=== PATIENT | female | born 1945 | race Caucasian/White ===

== ENCOUNTER 2017-09-30 14:29 | Inpatient (IN) | payer MEDICARE ==
[2017-09-30 14:58] LABS: #Basophils 0.1 thou/uL (0.0-0.2); #Monocytes 0.5 thou/uL (0.11-0.59); #Neutrophils 5.7 thou/uL (1.40-6.50); %Basophils 1.4 % (0.0-1.0); %Eosinophils 0.6 % (0.0-10.0); %Monocytes 6.9 % (0.0-10.0); Hemoglobin 13.6 g/dL (12.0-16.0); Mean Corpuscular HGB CONC 34.3 g/dL (32.0-36.0); Mean Corpuscular Hemoglobin 31.4 pg (27.0-31.0); Mean Corpuscular Volume 91.7 fl (81.0-99.0); Platelet Count 181 thou/uL (130-400); RBC Distribution Width 13.4 % (11.5-14.5); Red Blood Cell (RBC) Count 4.34 mill/uL (4.20-5.40); White Blood Cell (WBC) Count 7.3 thou/uL (4.8-10.8)
[2017-09-30] MEDS ORDERED: Acetaminophen 500 MG TAB ONE (14:58)
[2017-09-30 15:13] LABS: ALT (SGPT) 17 U/L (8-55); AST (SGOT) 17 U/L (5-34); Alkaline Phosphatase 68 U/L (40-150); Anion Gap 17 mmol/L (10-20); BUN (Urea Nitrogen) 13 mg/dL (9.8-20.1); Bilirubin, Total 0.8 mg/dL (0.2-1.2); Calc. Creatinine Clearance 0 mL/min (70-130); Calcium 9.5 mg/dL (7.8-10.44); Carbon Dioxide 25 mmol/L (23-31); Chloride 95 mmol/L (98-107); Estimated GFR-MDRD 47; Globulin 2.3 g/dL (2.4-3.5); Glucose 109 mg/dL (80-115); Potassium 3.7 mmol/L (3.5-5.1); Protein, Total 6.3 g/dL (6.0-8.3); Sodium 133 mmol/L (136-145)
--- NOTE | 2017-09-30 15:34 | RAD ---
PORTABLE CHEST ONE VIEW: Date: 09-30-17 Time: 2:22 p.m. History: Fever, cough. FINDINGS: Comparison made with exam of 09-08-16. The heart size is borderline. The lungs are well expanded without confluent areas of consolidation or pneumothorax, michelle edema or pleural effusions. Continued mild elevation of the right hemidiaphragm. IMPRESSION: No acute process. POS: [facility]
[2017-09-30] MEDS ORDERED: Piperacillin/Tazobactam 3.375 GM VIAL ONE (15:35)
[2017-09-30] MEDS ORDERED: Sodium Chloride 0.9% 100 ML ONE ×2 (15:36)
[2017-09-30 18:55] LABS: Lactic Acid 1.5 mmol/L (0.5-2.2)
[2017-09-30] MEDS ORDERED: Bisacodyl 5 MG TAB PO PRN (19:03)
[2017-09-30] MEDS ORDERED: Ondansetron ODT 4 MG TAB PO PRN (19:03)
[2017-09-30] MEDS ORDERED: Ondansetron HCl/PF 4 MG/2 ML Vial IVP PRN (19:03)
[2017-09-30 19:39] VITALS: BMI 32.9
[2017-09-30 19:49] LABS: Bilirubin Negative (Negative); Blood, Urine Negative (Negative); Clarity CLEAR (Clear); Glucose, Urine (Dipstick) Negative (Negative); Leukocyte Negative (Negative); Nitrite Negative (Negative); Protein, Urine (Dipstick) Negative (Neg-Trace); Specific Gravity, Urine 1.008 (1.002-1.036); Urobilinogen 0.2 mg/dL (0.2-1.0); pH, Urine 6.5 (5.0-9.0)
[2017-09-30] MEDS ORDERED: Vancomycin HCl 500 MG in Sodium Chloride 0.9% 100 ML IVPB SCH (20:00)
--- NOTE | 2017-09-30 20:38 | CT ---
CT CHEST WITHOUT CONTRAST: INDICATIONS: Cough. CORRELATION: Correlation made to a recent portable chest from 09/30/2017, which showed no focal infiltrate. TECHNIQUE: Multiple axial tomograms obtained through the chest without IV enhancement. FINDINGS: The lungs are well aerated. There is streaky atelectasis and/or infiltrate in the left lower lobe, p eripherally. There is an area of interstitial infiltrate and/or atelectasis in the superior segment, right lower l obe, posterior mid lung field. There is also an area of streaky and hazy alveolar atelectasis or inf iltrate in the medial right lower lobe. The mediastinum is unremarkable. Images through the upper abdomen are unremarkable. IMPRESSION: 1. Streaky atelectasis and/or infiltrate in the left lower lobe. 2. Focal area of interstitial and hazy alveolar infiltrate in the posterior mid right lung, probably superior segment, right lower lobe. 3. Some streaky atelectasis and/or infiltrate in the medial right lower lobe. POS: [facility]
[2017-09-30] MEDS: Sodium Chloride 0.9% 1,000 ML IV SCH (20:52)
[2017-09-30] MEDS ORDERED: Vancomycin HCl 1 GM in Premix Bag 1 BAG IVPB SCH (21:00)
[2017-09-30] MEDS ORDERED: Dronedarone HCl 400 MG TAB PO SCH (21:15)
[2017-09-30] MEDS ORDERED: Atorvastatin Calcium 10 MG TAB PO SCH (21:15)
[2017-09-30] MEDS: Gabapentin 300 MG CAP PO SCH (21:28)
[2017-09-30] MEDS: Docusate 100 MG CAP PO SCH (21:29)
[2017-09-30] MEDS: Famotidine 20 MG TAB PO SCH (21:29)
[2017-09-30] MEDS ORDERED: Oxybutynin ER 5 MG TAB PO SCH (21:30)
[2017-09-30] MEDS ORDERED: Estradiol 0.01% Vaginal Cream 42.5 gm Tube VAG SCH (21:30)
[2017-09-30] MEDS: Piperacillin/Tazobactam 3.375 GM in Sodium Chloride 0.9% 100 ML IVPB SCH (22:25)
[2017-09-30] MEDS ORDERED: Piperacillin/Tazobactam 3.375 GM in Sodium Chloride 0.9% 100 ML IVPB SCH (23:59)
--- NOTE | 2017-10-01 03:46 | HP ---
PRIMARY CARE PHYSICIAN: Primo Wills MD CHIEF COMPLAINT: Cough and fever. HISTORY OF PRESENT ILLNESS: This is a 71-year-old white female with a history of multiple myeloma, s yannick post bone marrow transplant and on chemotherapy every 2 weeks. She reports 1 week ago, she dev eloped cough, went to see her primary care physician who diagnosed bronchitis and gave her cough supp ressants. She reports that the cough was stable for a while then started getting worse, she gotlot o f rattling in her chest. Eventually, starting Mucinex with help, mobilize some of the secretions out , but still felt like she had no energy, was sleeping all the time, had a temperature up to 100 degre es over the last few days and then this morning, she spiked a fever to 103, so she came into the [facility] room. In the [facility], she was found to have a temperature of 102. She was tachycardic in the 130s, did have a stable blood pressure over 100 systolic. She had an el evated lactic acid. There was normal white blood cell count, normal chest x-ray. The patient was gi farhad a 30 mL per kg normal saline bolus with resolution of her lactic acidosis. She was also given a dose of Zosyn and a dose of vancomycin and admitted to the hospital here. PAST MEDICAL HISTORY: 1. Multiple myeloma diagnosed in 2010. 2. 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 3. History of atrial fibrillation, on Multaq. 4. Hypertension. 5. Hyperlipidemia. PAST SURGICAL HISTORY: Hysterectomy with bilateral oophorectomy in 1994. SOCIAL HISTORY: Patient is , accompanied by her in the hospital. 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 No alcohol, tobacco, or illicit drug use. She has functional all activities of daily living. FAMILY HISTORY: The patient's father, aunt and uncle with history of stroke and her aunt with breast cancer. ALLERGIES: 1. ERYTHROMYCIN. 2. LEVAQUIN. CURRENT MEDICATIONS: 1. Hydrochlorothiazide 25 mg daily. 2. Gabapentin 900 mg 3 times a day. 3. Aspirin 81 mg daily. 4. Magnesium 500 mg twice a day. 5. Bactrim 2 tablets 2 times a day while on her chemotherapy. REVIEW OF SYSTEMS: Constitutional: Positive for fever and chills. Eyes: No double vision or blurr ed vision. ENT: No congestion or drainage. She does have a sore throat from cough. Pulmonary: Se e HPI. No current shortness of breath. She has had some wheezing on and off with the cough. Cardio vascular: No chest pain, no palpitations, or racing heart. Gastrointestinal: No abdominal pain. S he had nausea and vomiting x1 when her daughter put a Vicks vaporizer in the room along with another smelling medication that she felt like she could not breathe and vomited at that time. This all reso lved with removal of those smells from the room. She has been eating well otherwise no constipation. She does have diarrhea persistently from her chemotherapy agent. This is a known side effect. She took Lomotil earlier and that diarrhea has resolved. Genitourinary: No dysuria or hematuria. She is not able to give a urine sample yet in the emergency room due to being dehydrated. Musculoskeleta l: No muscle aches, no joint pains. Skin: No rashes or lesions noted. Neurologic: She has chroni c mild numbness and tingling in her bilateral legs from feet up to her hips and in her bilateral hand s and then has a severe burning pain in her bilateral legs and feet if she does not take her gabapent in. No focal weakness or other neurologic symptoms. PHYSICAL EXAMINATION: VITAL SIGNS: Blood pressure 102/68, pulse is now 82, temperature 98.2, respirations 14, O2 sat 92% o n room air. GENERAL: This is a well-developed, well-nourished, white female in no acute distress. HEENT: Pupils equal, round, and react to light. Oropharynx is clear, without lesions, erythema or e xudate. NECK: Supple. No lymphadenopathy, no thyroid nodules or enlargement, no JVD. HEART: Regular rate and rhythm. No murmurs, rubs or gallops. LUNGS: Clear to auscultation bilaterally. No wheezes, crackles, or rhonchi. ABDOMEN: Soft, nontender to palpation, normoactive bowel sounds. No hepatosplenomegaly or other mas ses. EXTREMITIES: No clubbing, cyanosis, or edema. SKIN: Without rashes or other lesions. NEUROLOGIC: Intact strength in all extremities. No facial droop. She does have some mild decreased sensation in lower extremities, but deep touches are hypersensitive, increased pain to deep touch an d pressure in the feet. LABORATORY AND DIAGNOSTIC DATA: CBC within normal limits without any leukocytosis. Complete metabol ic panel was notable for sodium of 133, chloride of 95, creatinine of 1.15 her most recent, before it was 0.89. Lactic acid was 2.6, down to 1.5 after fluids and globulin is 2.3, the remainder was all normal. Chest x-ray: I did review the chest x-ray along with the radiologist's report. There is no active pulmonary disease visible. ASSESSMENT AND PLAN: 1. Severe sepsis. The patient has had resolution of lactic acidosis with fluids and resolution of h er tachycardia. We will continue IV fluids of normal saline at 100 mL per hour for now. Blood cultu res are pending. We will try to get a urine from her. She has already had antibiotics in the emerge ncy room and look if it looks infected on microscopy, for now we will continue the Zosyn and the vanc omycin that was started in the emergency room. The patient is immunosuppressed from her Multiple mye michell and treatment. 2. Cough and chest congestion. The patient does not have any evidence of pneumonia on her chest x-r ay; however, her symptoms are suspicious for pneumonia given her sepsis, I will go and get a CT scan of her chest to better evaluate such as pneumonia. We will also give her breathing treatments as nee ded and Mucinex. At this time, she is saturating decently on room air while to keep a close eye on t hat. If she starts needing oxygen, we may need to ask Pulmonology to see her. 3. Multiple myeloma, on chemotherapy. The patient does not have leukopenia at this time. She is go ing to have to miss her next chemotherapy which was to be later this week. 4. Hypertension. The patient is currently a low-ended normotensive, so will hold off on her antihyp ertensives for now. 5. Acute renal failure secondary to volume depletion and sepsis. We will monitor this closely with IV fluids for resolution. 6. Gastrointestinal prophylaxis. We will continue patient's Nexium. 7. Deep venous thrombosis prophylaxis. Put the patient on sequential compression devices while in b ed and will give her subcutaneous Lovenox. 8. Code status: I did discuss with the patient. She is a FULL CODE. Should she be incapacitated, her would be her medical decision maker, his name is Sebastián Kirkpatrick.
[2017-10-01] MEDS: Piperacillin/Tazobactam 3.375 GM in Sodium Chloride 0.9% 100 ML IVPB SCH ×2 (04:18→09:05)
[2017-10-01 05:04] LABS: Anion Gap 9 mmol/L (10-20); BUN (Urea Nitrogen) 13 mg/dL (9.8-20.1); Calc. Creatinine Clearance 82 mL/min (70-130); Calcium 7.6 mg/dL (7.8-10.44); Carbon Dioxide 24 mmol/L (23-31); Chloride 105 mmol/L (98-107); Estimated GFR-MDRD 58; Glucose 92 mg/dL (80-115); Potassium 3.2 mmol/L (3.5-5.1); Sodium 135 mmol/L (136-145)
[2017-10-01 05:32] LABS: #Eosinphils 0.1 thou/uL (0.0-0.7); #Lymphocytes 0.8 thou/uL (1.20-3.40); #Monocytes 0.4 thou/uL (0.11-0.59); #Neutrophils 3.2 thou/uL (1.40-6.50); %Basophils 0.2 % (0.0-1.0); %Lymphocytes 18.4 % (21.0-51.0); %Neutrophils 70.4 % (42.0-75.0); Hemoglobin 10.3 g/dL (12.0-16.0); Mean Corpuscular HGB CONC 34.4 g/dL (32.0-36.0); Mean Corpuscular Hemoglobin 32.4 pg (27.0-31.0); Mean Corpuscular Volume 94.1 fl (81.0-99.0); Mean Platelet Volume 6.9 fL (7.4-10.4); Platelet Count 156 thou/uL (130-400); RBC Distribution Width 13.8 % (11.5-14.5); Red Blood Cell (RBC) Count 3.17 mill/uL (4.20-5.40); White Blood Cell (WBC) Count 4.6 thou/uL (4.8-10.8)
[2017-10-01] MEDS: Sodium Chloride 0.9% 1,000 ML IV SCH ×2 (06:26→14:37)
[2017-10-01] MEDS ORDERED: Prevnar 13-Val Conj/PF 0.5 ML SYRINGE IM ONE (09:00)
[2017-10-01] MEDS ORDERED: Atorvastatin Calcium 10 MG TAB PO SCH (09:00)
[2017-10-01] MEDS ORDERED: Aspirin 81 mg Enteric Coated Tablet PO SCH (09:00)
[2017-10-01] MEDS: Docusate 100 MG CAP PO SCH ×2 (09:03→21:03)
[2017-10-01] MEDS: Dronedarone HCl 400 MG TAB PO SCH ×3 (09:03→21:04)
[2017-10-01] MEDS: Enoxaparin Sodium 40 MG/0.4 ML SYRINGE SC SCH (09:03)
[2017-10-01] MEDS: FLUoxetine HCl 10 MG CAP PO SCH (09:04)
[2017-10-01] MEDS: Gabapentin 300 MG CAP PO SCH ×3 (09:13→21:01)
[2017-10-01] MEDS ORDERED: Potassium Chloride 20 MEQ TAB PO SCH (10:00)
[2017-10-01] MEDS: Famotidine 20 MG TAB PO SCH ×2 (12:11→21:04)
--- NOTE | 2017-10-01 15:27 | PDOC.PN ---
- Subjective Encounter Start Date: 10/01/17 Encounter Start Time: 15:25 Subjective: feels much better.no SOB,fever/chills - Objective Resuscitation Status: Resuscitation Status FULL:Full Resuscitation MAR Reviewed: Yes Vital Signs & Weight: Vital Signs (12 hours) Temp Pulse Resp BP BP Pulse Ox 10/01/17 11:47 98.0 F 71 16 117/77 97 10/01/17 08:00 97.9 F 62 16 95 10/01/17 07:36 97.9 F 62 16 114/75 95 10/01/17 04:00 97.9 F 69 20 101/64 94 L Weight Weight 204 lb I&O: 09/30/17 10/01/17 10/02/17 06:59 06:59 06:59 Intake Total 1900 Output Total 1400 Balance 500 Result Diagrams: 10/01/17 04:21 10/01/17 04:21 Additional Labs: Microbiology 09/30/17 15:00 Venous blood - Left Arm Blood Culture - Preliminary Specimen has been received and culture in progress. No Growth to date. 09/30/17 14:50 Venous blood - Right Arm Blood Culture - Preliminary Specimen has been received and culture in progress. No Growth to date. Phys Exam - Physical Examination Constitutional: NAD HEENT: PERRLA, moist MMs, sclera anicteric, oral pharynx no lesions Neck: no nodes, no JVD, supple, full ROM Respiratory: no wheezing, no rales, no rhonchi, clear to auscultation bilateral Cardiovascular: RRR, no significant murmur, no rub Gastrointestinal: soft, non-tender, no distention, positive bowel sounds Musculoskeletal: no edema, pulses present Neurological: non-focal, normal sensation, moves all 4 limbs Psychiatric: normal affect, A&O x 3 Skin: no rash Dx/Plan (1) Sepsis Code(s): A41.9 - SEPSIS, UNSPECIFIED ORGANISM Status: Acute (2) PNA (pneumonia) Code(s): J18.9 - PNEUMONIA, UNSPECIFIED ORGANISM Status: Acute (3) Hypokalemia Code(s): E87.6 - HYPOKALEMIA Status: Acute (4) Multiple myeloma Code(s): C90.00 - MULTIPLE MYELOMA NOT HAVING ACHIEVED REMISSION Status: Acute Qualifiers: Multiple myeloma remission status: not in remission Qualified Code(s): C90.00 - Multiple myeloma not having achieved remission Comment: Currently under tx but chemo and steroids on hold due to cellulitis (5) HTN (hypertension) Code(s): I10 - ESSENTIAL (PRIMARY) HYPERTENSION Status: Chronic Qualifiers: Hypertension type: essential hypertension Qualified Code(s): I10 - Essential (primary) hypertension Comment: Stable (6) Chronic a-fib Code(s): I48.2 - CHRONIC ATRIAL FIBRILLATION Status: Chronic (7) HLD (hyperlipidemia) Code(s): E78.5 - HYPERLIPIDEMIA, UNSPECIFIED Status: Chronic - Plan plan discussed w/ family, continue antibiotics, PT/OT, incentive spirometry, out of bed/ambulate, DVT proph w/SCDs WBC lower today.monitor.pt immunocompromised. -: consult ID for sepsis and PNA.cont ABx.follow Cx -: Transfer to Oncology . -: neutropenic precautions. -: home meds as below. * .replace and recheck potassium Review of Systems - Review of Systems Constitutional: negative: fever, chills, sweats, weakness, malaise, other ENT: negative: Ear Pain, Ear Discharge, Nose Pain, Nose Discharge, Nose Congestion, Mouth Pain, Mouth Swelling, Throat Pain, Throat Swelling, Other Respiratory: negative: Cough, Dry, Shortness of Breath, Hemoptysis, SOB with Excertion, Pleuritic Pain, Sputum, Wheezing Cardiovascular: negative: chest pain, palpitations, orthopnea, paroxysmal nocturnal dyspnea, edema, light headedness, other Gastrointestinal: negative: Nausea, Vomiting, Abdominal Pain, Diarrhea, Constipation, Melena, Hematochezia, Other Genitourinary: negative: Dysuria, Frequency, Incontinence, Hematuria, Retention , Other Musculoskeletal: negative: Neck Pain, Shoulder Pain, Arm Pain, Back Pain, Hand Pain, Leg Pain, Foot Pain, Other Neurological: negative: Weakness, Numbness, Incoordination, Change in Speech, Confusion, Seizures, Other - Medications/Allergies Allergies/Adverse Reactions: Allergies Allergy/AdvReac Type Severity Reaction Status Date / Time erythromycin base Allergy Verified 06/11/16 13:22 levofloxacin [From Levaquin] Allergy Verified 06/11/16 13:22 Medications: Current Medications Aspirin (Aspirin Chewable) 81 mg PO HS [facility] Atorvastatin Calcium (Lipitor) 10 mg PO HS [facility] Bisacodyl (Dulcolax) 10 mg PO DAILYPRN PRN PRN Reason: Constipation Docusate Sodium (Colace) 100 mg PO BID [facility] Last Admin: 10/01/17 09:03 Dose: 100 mg Dronedarone (Multaq) 400 mg PO BID[facility] Last Admin: 10/01/17 09:03 Dose: 400 mg Enoxaparin Sodium (Lovenox) 40 mg SC 0900 [facility] Last Admin: 10/01/17 09:03 Dose: 40 mg Estradiol (Estrace 0.01% Vaginal Cream) 0 gm VAG MWF@2100 [facility] Famotidine (Pepcid) 20 mg PO BID [facility] Last Admin: 10/01/17 12:11 Dose: 20 mg Fluoxetine HCl (Prozac) 10 mg PO DAILY [facility] Last Admin: 10/01/17 09:04 Dose: 10 mg Gabapentin (Neurontin) 900 mg PO TID [facility] Last Admin: 10/01/17 14:37 Dose: 900 mg Sodium Chloride (Normal Saline 0.9%) 1,000 mls @ 100 mls/hr IV .Q10H [facility] Last Admin: 10/01/17 14:37 Dose: 1,000 mls Ceftriaxone Sodium 2 gm/ (Sodium Chloride) 100 mls @ 200 mls/hr IVPB Q24HR [facility] Loperamide HCl (Imodium) 2 mg PO PRN PRN PRN Reason: Diarrhea/Loose Stools Miscellaneous Medication (Pharmacy To Dose) 1 each IVPB PRN PRN PRN Reason: . Ondansetron HCl (Zofran Odt) 4 mg PO Q6H PRN PRN Reason: Nausea/Vomiting Ondansetron HCl (Zofran) 4 mg IVP Q6H PRN PRN Reason: Nausea/Vomiting Oxybutynin Chloride (Ditropan Xl) 10 mg PO HS [facility] Pantoprazole Sodium (Protonix) 40 mg PO DAILY [facility] Last Admin: 10/01/17 09:04 Dose: 40 mg
[2017-10-01] MEDS ORDERED: Vancomycin HCl 1.5 GM in Sodium Chloride 0.9% 250 ML 300 ML IVPB SCH (17:00)
[2017-10-01] MEDS: cefTRIAXone\\ROCEPHIN 2 GM in Sodium Chloride 0.9% 100 ML IVPB SCH (18:25)
--- NOTE | 2017-10-01 20:17 | CON ---
DATE OF CONSULTATION: 10/01/2017 REASON FOR CONSULTATION: Fever, pneumonia. HISTORY OF PRESENT ILLNESS: A 71-year-old with history of multiple myeloma status post bone marrow t ransplant who is still on chemotherapy and was in her usual state until about a week before when she developed cough, was seen by primary care physician who gave her cough suppressants and then the symp toms became worse and subsequently developed temperature up to 103, was admitted. There was somewhat elevated lactic acid and relative hypotension. She was started on Zosyn and vancomycin. A CT of th e chest showed some subsegmental infiltrates in the left side. Currently, she is feeling better. No headaches, visual symptoms, sore throat, odynophagia, dysphagia, no back pain. She has no chest nathaly n, no abdominal pain or diarrhea. No genitourinary symptoms. No joint symptoms. PAST MEDICAL HISTORY: Multiple myeloma since 2010, peripheral neuropathy secondary to chemotherapy a gents, bone marrow transplant, atrial fibrillation on Multaq, hypertension, hyperlipidemia. PAST SURGICAL HISTORY: Hysterectomy. SOCIAL HISTORY: , [place] No smoking or alcoholic beverage use. FAMILY HISTORY: CVA, breast cancer. ALLERGIES: ERYTHROMYCIN and LEVAQUIN. CURRENT MEDICATIONS: Aspirin, Lipitor, Dulcolax, Colace, Multaq, Lovenox, Estrace, Pepcid, Prozac, N eurontin, Imodium, Zofran, Ditropan, Protonix, Zosyn and vancomycin. PHYSICAL EXAMINATION: VITAL SIGNS: T-max is 97.9-98, blood pressure 117/77, pulse 71, respirations 16, O2 sat 97%. NECK: No lymphadenopathy. HEENT: Ocular movements conjugate. Sclerae white. Pupils are equal. Cavity normal. LUNGS: With faint basilar crackles in the left side. HEART: S1, S2, regular rate without murmurs. ABDOMEN: Soft, not distended or tender. No ascites. No bladder distention. EXTREMITIES: No joint inflammatory activity. NEUROLOGIC: Nonfocal. Cognitive function normal. LABORATORY DATA: White cell count 7.3 and 4.6, hemoglobin 13.6, platelets 181,000, 78% neutrophils, now down to 70% neutrophils. Sodium 135, creatinine 0.95, which is down from admission. Liver profi le normal. Calcium 7.6, albumin 4.0, globulin 2.3. Urinalysis normal. Microbiology with 2 sets of blood culture negative. Urine culture, no growth at [address] of chest, which demonstrated strea ky atelectases and infiltrate in left lower lobe. A focal area of interstitial and hazy alveolar inf iltrate in the posterior right mid lung. ASSESSMENT: 1. Multiple myeloma, previous bone marrow treatment and now on some form of chemotherapy. 2. Respiratory symptoms with fever. Abnormal CT chest. DISCUSSION: The most likely scenario is community-acquired pneumonia with usual pathogens, Strep pne umoniae being the more likely one. Transition to Rocephin. Discontinue vancomycin and Zosyn. Atypi cals such as a Mycoplasma and Legionella are less likely in view of the early response to Zosyn and v ancomycin. If she continues to do well, then transition to oral Augmentin for discharge planning. T he patient would be eligible for Prevnar protein conjugate pneumococcal vaccine either upon discharge or in the outpatient setting.
[2017-10-01] MEDS ORDERED: Dronedarone HCl 400 MG TAB PO SCH (21:00)
[2017-10-01] MEDS: Atorvastatin Calcium 10 MG TAB PO SCH (21:03)
[2017-10-01] MEDS: Loperamide HCl 2 MG CAP PO PRN (21:11)
[2017-10-01] MEDS: Oxybutynin ER 5 MG TAB PO SCH (21:11)
[2017-10-02] MEDS: Sodium Chloride 0.9% 1,000 ML IV SCH (02:26)
[2017-10-02 04:12] LABS: #Eosinphils 0.1 thou/uL (0.0-0.7); #Lymphocytes 0.8 thou/uL (1.20-3.40); #Monocytes 0.3 thou/uL (0.11-0.59); #Neutrophils 1.9 thou/uL (1.40-6.50); %Eosinophils 3.4 % (0.0-10.0); %Lymphocytes 24.4 % (21.0-51.0); %Monocytes 10.8 % (0.0-10.0); %Neutrophils 61.4 % (42.0-75.0); Hemoglobin 10.2 g/dL (12.0-16.0); Mean Corpuscular HGB CONC 34.3 g/dL (32.0-36.0); Mean Corpuscular Hemoglobin 32.5 pg (27.0-31.0); Mean Corpuscular Volume 94.6 fl (81.0-99.0); Mean Platelet Volume 6.6 fL (7.4-10.4); Platelet Count 152 thou/uL (130-400); RBC Distribution Width 13.8 % (11.5-14.5); Red Blood Cell (RBC) Count 3.14 mill/uL (4.20-5.40); White Blood Cell (WBC) Count 3.1 thou/uL (4.8-10.8)
[2017-10-02 04:26] LABS: Anion Gap 9 mmol/L (10-20); BUN (Urea Nitrogen) 6 mg/dL (9.8-20.1); Calc. Creatinine Clearance 108 mL/min (70-130); Calcium 7.3 mg/dL (7.8-10.44); Carbon Dioxide 25 mmol/L (23-31); Chloride 107 mmol/L (98-107); Estimated GFR-MDRD 80; Glucose 91 mg/dL (80-115); Potassium 3.2 mmol/L (3.5-5.1); Sodium 138 mmol/L (136-145)
[2017-10-02] MEDS ORDERED: Potassium Chloride 20 MEQ TAB PO SCH (07:15)
[2017-10-02] MEDS: Famotidine 20 MG TAB PO SCH ×2 (08:49→21:04)
[2017-10-02] MEDS: Gabapentin 300 MG CAP PO SCH ×3 (08:49→21:02)
[2017-10-02] MEDS: FLUoxetine HCl 10 MG CAP PO SCH (08:50)
[2017-10-02] MEDS: Dronedarone HCl 400 MG TAB PO SCH ×2 (08:50→21:02)
[2017-10-02] MEDS: Docusate 100 MG CAP PO SCH ×2 (08:50→21:05)
[2017-10-02] MEDS: Enoxaparin Sodium 40 MG/0.4 ML SYRINGE SC SCH (08:50)
--- NOTE | 2017-10-02 09:33 | PDOC.PN ---
- Subjective Encounter Start Date: 10/02/17 Encounter Start Time: 09:33 Subjective: c/o feeling tired -: c/o swelling in arms and legs - Objective Resuscitation Status: Resuscitation Status FULL:Full Resuscitation MAR Reviewed: Yes Vital Signs & Weight: Vital Signs (12 hours) Temp Pulse Resp BP Pulse Ox 10/02/17 08:07 98 F 75 18 127/77 97 10/02/17 04:00 98.7 F 97 16 137/82 95 10/02/17 03:59 98.7 F 70 16 131/71 95 10/01/17 23:40 98.5 F 57 L 16 124/57 L 95 Weight Weight 204 lb I&O: 10/01/17 10/02/17 10/03/17 06:59 06:59 06:59 Intake Total 1900 2400 Output Total 1400 Balance 500 2400 Result Diagrams: 10/02/17 04:00 10/02/17 04:00 Additional Labs: Microbiology 09/30/17 19:40 Urine voided Urine Culture - Preliminary NO GROWTH AT 12 HOURS 09/30/17 15:00 Venous blood - Left Arm Blood Culture - Preliminary Specimen has been received and culture in progress. No Growth to date. 09/30/17 14:50 Venous blood - Right Arm Blood Culture - Preliminary Specimen has been received and culture in progress. No Growth to date. Laboratory Tests 09/30/17 10/01/17 10/02/17 14:50 04:21 04:00 WBC 7.3 4.6 L 3.1 L LABS REVIEWED Phys Exam - Physical Examination Constitutional: NAD HEENT: PERRLA, moist MMs, sclera anicteric, TM's clear, oral pharynx no lesions , 2+ tonsils Neck: no nodes, no JVD, supple, full ROM Respiratory: no wheezing, no rales, no rhonchi, wheezing present, clear to auscultation bilateral Cardiovascular: RRR, no significant murmur, no rub, gallop, irregular Gastrointestinal: soft, non-tender, no distention, positive bowel sounds Musculoskeletal: pulses present, edema present (b/l leg sand R arm at IV site) Neurological: non-focal, normal sensation, moves all 4 limbs Psychiatric: normal affect, A&O x 3 Skin: no rash Dx/Plan (1) Sepsis Code(s): A41.9 - SEPSIS, UNSPECIFIED ORGANISM Status: Acute (2) PNA (pneumonia) Code(s): J18.9 - PNEUMONIA, UNSPECIFIED ORGANISM Status: Acute (3) Hypokalemia Code(s): E87.6 - HYPOKALEMIA Status: Acute (4) Multiple myeloma Code(s): C90.00 - MULTIPLE MYELOMA NOT HAVING ACHIEVED REMISSION Status: Acute Qualifiers: Multiple myeloma remission status: not in remission Qualified Code(s): C90.00 - Multiple myeloma not having achieved remission Comment: Currently under tx but chemo and steroids on hold due to cellulitis (5) HTN (hypertension) Code(s): I10 - ESSENTIAL (PRIMARY) HYPERTENSION Status: Chronic Qualifiers: Hypertension type: essential hypertension Qualified Code(s): I10 - Essential (primary) hypertension Comment: Stable (6) Chronic a-fib Code(s): I48.2 - CHRONIC ATRIAL FIBRILLATION Status: Chronic (7) HLD (hyperlipidemia) Code(s): E78.5 - HYPERLIPIDEMIA, UNSPECIFIED Status: Chronic - Plan plan discussed w/ family, continue antibiotics, PT/OT, out of bed/ambulate, DVT proph w/SCDs WBC counts lower today.likley due to recent chemo & now sepsis.monitor -: cont empiric ABx.apprecite ID input -: DC IVF. -: elevate legs when sitting & resting -: clinically better.check labs in am * . Review of Systems - Review of Systems Constitutional: weakness, malaise. negative: fever, chills, sweats, other ENT: negative: Ear Pain, Ear Discharge, Nose Pain, Nose Discharge, Nose Congestion, Mouth Pain, Mouth Swelling, Throat Pain, Throat Swelling, Other Respiratory: negative: Cough, Dry, Shortness of Breath, Hemoptysis, SOB with Excertion, Pleuritic Pain, Sputum, Wheezing Cardiovascular: negative: chest pain, palpitations, orthopnea, paroxysmal nocturnal dyspnea, edema, light headedness, other Gastrointestinal: negative: Nausea, Vomiting, Abdominal Pain, Diarrhea, Constipation, Melena, Hematochezia, Other Genitourinary: negative: Dysuria, Frequency, Incontinence, Hematuria, Retention , Other Musculoskeletal: negative: Neck Pain, Shoulder Pain, Arm Pain, Back Pain, Hand Pain, Leg Pain, Foot Pain, Other Neurological: negative: Weakness, Numbness, Incoordination, Change in Speech, Confusion, Seizures, Other - Medications/Allergies Allergies/Adverse Reactions: Allergies Allergy/AdvReac Type Severity Reaction Status Date / Time erythromycin base Allergy Verified 06/11/16 13:22 levofloxacin [From Levaquin] Allergy Verified 06/11/16 13:22 Medications: Current Medications Aspirin (Aspirin Chewable) [address] [facility] Last Admin: 10/01/17 21:04 Dose: 81 mg Atorvastatin Calcium (Lipitor) [address] [facility] Last Admin: 10/01/17 21:03 Dose: 10 mg Bisacodyl (Dulcolax) 10 mg PO DAILYPRN PRN PRN Reason: Constipation Docusate Sodium (Colace) [address] [facility] Last Admin: 10/02/17 08:50 Dose: Not Given Dronedarone (Multaq) 400 mg PO 0800,2100 [facility] Last Admin: 10/02/17 08:50 Dose: 400 mg Enoxaparin Sodium (Lovenox) [address] [facility] Last Admin: 10/02/17 08:50 Dose: 40 mg Estradiol (Estrace 0.01% Vaginal Cream) 0 gm VAG MWF@2100 [facility] Famotidine (Pepcid) [address] [facility] Last Admin: 10/02/17 08:49 Dose: 20 mg Fluoxetine HCl (Prozac) [address] [facility] Last Admin: 10/02/17 08:50 Dose: 10 mg Gabapentin (Neurontin) [address] [facility] Last Admin: 10/02/17 08:49 Dose: 900 mg Ceftriaxone Sodium 2 gm/ (Sodium Chloride) 100 mls @ 200 mls/hr IVPB Q24HR [facility] Last Admin: 10/01/17 18:25 Dose: 100 mls Loperamide HCl (Imodium) 2 mg PO PRN PRN PRN Reason: Diarrhea/Loose Stools Last Admin: 10/01/17 21:11 Dose: 2 mg Ondansetron HCl (Zofran Odt) 4 mg PO Q6H PRN PRN Reason: Nausea/Vomiting Ondansetron HCl (Zofran) 4 mg IVP Q6H PRN PRN Reason: Nausea/Vomiting Oxybutynin Chloride (Ditropan Xl) 10 mg PO [facility] Last Admin: 10/01/17 21:11 Dose: 10 mg Pantoprazole Sodium (Protonix) [address] [facility] Last Admin: 10/02/17 08:49 Dose: 40 mg Saccharomyces Boulardii (Florastor) [address] [facility] Sodium Chloride (Flush - Normal Saline) [address] [facility] Last Admin: 10/02/17 08:51 Dose: Not Given Sodium Chloride (Flush - Normal Saline) 10 ml IVF PRN PRN PRN Reason: Saline Flush
[2017-10-02] MEDS ORDERED: Saccharomyces boulardii 250 MG CAP PO SCH (09:45)
[2017-10-02] MEDS: cefTRIAXone\\ROCEPHIN 2 GM in Sodium Chloride 0.9% 100 ML IVPB SCH (15:45)
[2017-10-02] MEDS: Loperamide HCl 2 MG CAP PO PRN (18:36)
[2017-10-02] MEDS ORDERED: Estradiol 0.01% Vaginal Cream 42.5 gm Tube VAG SCH (21:00)
[2017-10-02] MEDS: Atorvastatin Calcium 10 MG TAB PO SCH (21:03)
[2017-10-02] MEDS: Oxybutynin ER 5 MG TAB PO SCH (21:03)
[2017-10-03 07:48] LABS: #Eosinphils 0.1 thou/uL (0.0-0.7); #Lymphocytes 0.7 thou/uL (1.20-3.40); #Monocytes 0.2 thou/uL (0.11-0.59); #Neutrophils 1.2 thou/uL (1.40-6.50); %Basophils 0.2 % (0.0-1.0); %Eosinophils 2.9 % (0.0-10.0); %Lymphocytes 30.6 % (21.0-51.0); %Monocytes 10.8 % (0.0-10.0); %Neutrophils 55.5 % (42.0-75.0); Hemoglobin 10.9 g/dL (12.0-16.0); Mean Corpuscular Hemoglobin 32.4 pg (27.0-31.0); Mean Corpuscular Volume 95.3 fl (81.0-99.0); Mean Platelet Volume 6.9 fL (7.4-10.4); Platelet Count 176 thou/uL (130-400); RBC Distribution Width 13.6 % (11.5-14.5); Red Blood Cell (RBC) Count 3.35 mill/uL (4.20-5.40); White Blood Cell (WBC) Count 2.1 thou/uL (4.8-10.8)
[2017-10-03] MEDS ORDERED: Potassium Chloride 20 MEQ TAB PO SCH (08:45)
[2017-10-03] MEDS ORDERED: Saccharomyces boulardii 250 MG CAP PO SCH (09:00)
[2017-10-03] MEDS ORDERED: cefTRIAXone\\ROCEPHIN 2 GM in Sodium Chloride 0.9% 100 ML IVPB SCH (10:00)
[2017-10-03] MEDS: Dronedarone HCl 400 MG TAB PO SCH (10:03)
[2017-10-03] MEDS: Enoxaparin Sodium 40 MG/0.4 ML SYRINGE SC SCH (10:04)
[2017-10-03] MEDS: Docusate 100 MG CAP PO SCH (10:04)
[2017-10-03] MEDS: FLUoxetine HCl 10 MG CAP PO SCH (10:04)
[2017-10-03] MEDS: Gabapentin 300 MG CAP PO SCH (10:04)
[2017-10-03] MEDS: Famotidine 20 MG TAB PO SCH (10:05)
[2017-10-03 11:58] VITALS: BP 149/74; TEMP 98.8
--- NOTE | 2017-10-03 12:43 | DIS ---
PRIMARY CARE PHYSICIAN: Dr. Primo Wills CONDITION AT THE TIME OF DISCHARGE: Stable and improved. DISCHARGE DISPOSITION: Home. DISCHARGE DIAGNOSES: 1. Sepsis. 2. Community-acquired pneumonia. 3. Hypokalemia, resolved. 4. Multiple myeloma, currently under chemotherapy. 5. Hypertension. 6. History of chronic atrial fibrillation, stable. 7. Dyslipidemia. 8. Leukopenia secondary to most likely ongoing chemotherapy. 9. Chronic anemia. DISCHARGE MEDICATIONS: NEW MEDICATIONS: Augmentin 875/125 one tablet p.o. b.i.d. for 10 more days. RESUME FOLLOWING HOME MEDICATIONS: 1. Gabapentin 600 mg p.o. daily. 2. Bactrim double strength 1 tablet Saturday, Saturday, Saturday. 3. Ditropan-XL 10 mg daily. 4. Valacyclovir 500 mg daily. 5. Multivitamin daily. 6. Hydrochlorothiazide 25 mg daily. 7. Prozac 10 mg daily. 8. Nexium 40 mg daily. 9. Multaq 400 mg p.o. b.i.d. 10. Vitamin D3 twice a day. 11. Lipitor 10 mg daily. 12. Aspirin 81 mg daily. 13. Alpha lipoic acid 600 mg daily. CONSULTATIONS INHOUSE: Infectious Disease, Dr. Fatima. PROCEDURES IN THE HOSPITAL: 1. Include chest x-ray upon admission, which was negative for any acute process. 2. CT scan of the chest which shows atelectasis versus insult in the left lower lobe and alveolar in filtrate in the right lung and right lower lobe and superior segment. HISTORY OF PRESENT ILLNESS: Ms. Kirkpatrick is a very pleasant 71-year-old female with known history o f multiple myeloma who is currently on chemotherapy every 2 weeks at [facility] who presented to [facility] emergency room with complaints of cough and fever as high as 103. She presented to [facility] Emergency Room where she was found to have a temperature of 102, heart rate of 130 and systol ic blood pressure in 100-teens. She was also found to have elevated lactic acid. She was given empi marimar antibiotics and IV fluids and was admitted for sepsis. Please see admission history and physical for further detail. Admission chest x-ray did not have any evidence to suggest any specific infiltr ates. HOSPITAL COURSE: A CT scan of the chest was done given her significant symptoms and suspicion of pne umonia and it did show pneumonia on both sides. She was seen by Infectious Disease, given her immuno compromised status. Dr. Fatima saw the patient and adjusted the antibiotics and she received Rocephin in the hospital. Cultures were obtained and followed. Her urine culture, blood culture, and Clostr idium difficile testing was negative. She had significant improvement in her symptoms over the cours e of her hospitalization and was discharged this morning on oral antibiotics. She did have drop in her WBC count from 7.3 to 2.1 with neutrophils 55.5. She will get it checked to sarah at her primary care physician's office and report to [facility] early next week for followu p. At this time, she is not a candidate for any Neupogen or Neulasta treatments. She was seen and examined prior to discharge and reports that she is back to her baseline. She is wa lking in the hallways with the walking program and has good appetite and no new complaints. PHYSICAL EXAMINATION: VITAL SIGNS: This morning includes temperature 98.8, pulse of 71, respirations 20, saturating 97% on room air, blood pressure 149/74. GENERAL: No acute distress, awake, alert, oriented x3. CHEST: Clear to auscultation without any wheezing, rales or rhonchi. CARDIOVASCULAR: Rhythm is regular without any murmurs or gallops. NEUROLOGIC: Nonfocal. Discharge plan was discussed with the patient and she verbalized understanding. She received another dose of Rocephin prior to discharge today. Her new medication prescriptions were sent to her [facility]. Total time spent in the discharge of this patient 35 minutes.
== END 2017-10-03 13:39 | disposition home or self-care (01) | DRG 871 ==
LOC: SCSER 14:29 → T4-B 16:42 → ONC 10-01 16:08
PROVIDERS: ADMIT Emergency Medicine; ATTEND Emergency Medicine
DX: A41.9 Sepsis, unspecified organism (principal); J18.9 Pneumonia, unspecified organism; C90.00 Multiple myeloma not having achieved remission; Z94.81 Bone marrow transplant status; E87.2 Acidosis; E86.0 Dehydration; R65.20 Severe sepsis without septic shock; G62.0 Drug-induced polyneuropathy; I10 Essential (primary) hypertension; I48.2 Chronic atrial fibrillation; E87.6 Hypokalemia; D70.1 Agranulocytosis secondary to cancer chemotherapy; T45.1X5A Adverse effect of antineoplastic and immunosuppressive drugs, initial encounter; Z90.710 Acquired absence of both cervix and uterus; E78.5 Hyperlipidemia, unspecified; Y92.9 Unspecified place or not applicable; Z79.899 Other long term (current) drug therapy; Z79.52 Long term (current) use of systemic steroids; Z79.82 Long term (current) use of aspirin; Z79.2 Long term (current) use of antibiotics; Z88.1 Allergy status to other antibiotic agents; Z91.81 History of falling; Z90.722 Acquired absence of ovaries, bilateral; Z82.3 Family history of stroke; Z80.3 Family history of malignant neoplasm of breast
CPT/HCPCS: 36415; 71045; 71250; 80048; 80053; 81003; 83605; 83735; 85025; 87040; 87086; 87324; 87449; 90471; 90670; 96361; 96365; 96367; A4216; G0009; G8978-GP-CJ; G8979-GP-CJ; G8980-GP-CJ; G8987-GO-CI; G8988-GO-CI; G8989-GO-CI; J0696; J1650; J2543; J3370; J3475; J7050

== ENCOUNTER 2018-05-12 17:32 | Outpatient (CLI) | payer MEDICARE ==
--- NOTE | 2018-05-12 18:12 | RAD ---
TWO VIEWS CHEST: History: Acute bronchitis. J21.9 Date: 05-12-18 Comparison: 06-10-16 FINDINGS: Two views of the chest demonstrates the lungs to be well aerated. No evidence of active intrathoracic disease seen. No evidence of effusions, pneumonia, or pneumothorax seen. IMPRESSION: Normal two views chest. POS: FFK
== END 2018-05-12 17:33 | disposition home or self-care (01) ==
LOC: SCSRAD 17:32
PROVIDERS: ATTEND Family Medicine
DX: J21.9 Acute bronchiolitis, unspecified (principal)
CPT/HCPCS: 71046

== ENCOUNTER 2018-07-26 13:27 | Emergency (ER) | payer MEDICARE ==
--- NOTE | 2018-07-26 14:34 | RAD ---
FRadiograph chest 2 views: 07/26/2018 COMPARISON: 05/12/2018 HISTORY: 72-year-old female with cough and fever FINDINGS: No consolidation identified in the upper and mid lung zones. Subtle slightly increased attenuation, i rregular, at retrocardiac left lower lobe and right lung base on frontal view, not confirmed on later al view. No other interval change. No pleural effusion or cardiomegaly. No pneumothorax. IMPRESSION: 1. No convincing evidence of pneumonia. 2. Subtle questionable findings at lung bases, especially on the left. 3. Recommend follow-up two-view chest radiograph in one to 5 days.
== END 2018-07-26 15:05 | disposition home or self-care (01) ==
LOC: SCSER 13:27
DX: J45.909 Unspecified asthma, uncomplicated (principal); F32.9 Major depressive disorder, single episode, unspecified
CPT/HCPCS: 71046; 87804; 94640; J7620

== ENCOUNTER 2018-08-14 14:48 | Outpatient (CLI) | payer MEDICARE ==
--- NOTE | 2018-08-14 15:39 | RAD ---
TWO VIEWS CHEST: DATE: 08/14/2018. PROVIDED CLINICAL HISTORY: Bronchitis. FINDINGS: Comparison 07/26/2018. Cardiac and mediastinal silhouette is within normal limits. Vascular calcifica tion involves the aortic arch. No focal consolidation, pleural fluid, or pneumothorax apparent. IMPRESSION: No evidence for an acute cardiopulmonary process. POS: TPC
== END 2018-08-14 14:49 | disposition home or self-care (01) ==
LOC: BICRAD 14:48
PROVIDERS: ATTEND Family Medicine
DX: J40 Bronchitis, not specified as acute or chronic (principal)
CPT/HCPCS: 71046

== ENCOUNTER 2019-01-27 12:14 | Outpatient (CLI) | payer MEDICARE ==
--- NOTE | 2019-01-27 12:28 | RAD ---
Chest 2 views HISTORY: Cough. Fever. COMPARISON: 2018. FINDINGS: Cardiac silhouette and pulmonary vasculature are unremarkable. Mediastinum is midline with aortic calcification. Lungs are well-inflated. Mild diffuse prominence of the interstitium is stable. No lobar consolidation, pleural fluid, or pneumothorax are evident. IMPRESSION: Atherosclerosis. Chronic-type findings are stable.
== END 2019-01-27 12:15 | disposition home or self-care (01) ==
LOC: BICRAD 12:14
PROVIDERS: ATTEND Physician Assistant
DX: R05 Cough (principal); I70.0 Atherosclerosis of aorta
CPT/HCPCS: 71046

== ENCOUNTER 2019-04-07 11:51 | Outpatient (CLI) | payer MEDICARE ==
--- NOTE | 2019-04-07 15:21 | MMO ---
Bilateral MAMMO Bilat Screen [facility]. CLINICAL HISTORY: Patient is 73 years old and is seen for screening. The patient has the following family history of breast cancer: 2 maternal aunts, at age 40. The patient has a history of other cancer in October,. VIEWS: The views performed were: bilateral craniocaudal with tomosynthesis and bilateral mediolateral oblique with tomosynthesis. FILMS COMPARED: The present examination has been compared to prior imaging studies performed at [facility] on 01/14/2014, 01/18/2015, 02/29/2016 and 03/19/2017. This study has been interpreted with the assistance of computer-aided detection. MAMMOGRAM FINDINGS: There are scattered fibroglandular densities. There are no suspicious masses, suspicious calcifications, or new areas of architectural distortion. IMPRESSION: THERE IS NO MAMMOGRAPHIC EVIDENCE OF MALIGNANCY. A ROUTINE FOLLOW-UP MAMMOGRAM IN 1 YEAR IS RECOMMENDED. THE RESULTS OF THIS EXAM WERE SENT TO THE PATIENT. ACR BI-RADS Category 1 - Negative MAMMOGRAPHY NOTE: 1. A negative mammogram report should not delay a biopsy if a dominant of clinically suspicious mass is present. 2. Approximately 10% to 15% of breast cancers are not detected by mammography. 3. Adenosis and dense breasts may obscure an underlying neoplasm. Reported by: EWELINA FENG MD Electonically Signed: [id number]
== END 2019-04-07 11:52 | disposition home or self-care (01) ==
LOC: BICMAMMO 11:51
PROVIDERS: ATTEND Obstetrics & Gynecology
DX: Z12.31 Encounter for screening mammogram for malignant neoplasm of breast (principal); Z85.89 Personal history of malignant neoplasm of other organs and systems; Z80.3 Family history of malignant neoplasm of breast
CPT/HCPCS: 77063; 77067

== ENCOUNTER 2021-10-10 11:11 | Outpatient (CLI) | payer MEDICARE | END 2021-10-10 11:12 | disposition home or self-care (01) | LOC: BICMAMMO 11:11 | PROVIDERS: ATTEND Family Medicine | DX: Z12.31 Encounter for screening mammogram for malignant neoplasm of breast (principal); Z85.89 Personal history of malignant neoplasm of other organs and systems; Z80.3 Family history of malignant neoplasm of breast | CPT/HCPCS: 77063; 77067 ==

== ENCOUNTER 2024-01-16 13:50 | Outpatient (CLI) | payer MEDICARE | END 2024-01-16 13:51 | disposition home or self-care (01) | LOC: BICMAMMO 13:50 | PROVIDERS: ATTEND Family Medicine | DX: Z12.31 Encounter for screening mammogram for malignant neoplasm of breast (principal); Z80.3 Family history of malignant neoplasm of breast; Z85.89 Personal history of malignant neoplasm of other organs and systems | CPT/HCPCS: 77067 ==

== ENCOUNTER 2024-03-27 10:25 | Outpatient (CLI) | payer MEDICARE ==
[2024-03-27 12:21] LABS: INR-International Normal Ratio 1.2; Prothrombin Time 15.7 sec (12.0-14.7)
[2024-03-27 12:33] LABS: Anion Gap 12 mmol/L (10-20); BUN (Urea Nitrogen) 23 mg/dL (9.8-20.1); Calc. Creatinine Clearance 0 mL/min (70-130); Calcium 8.3 mg/dL (7.8-10.44); Carbon Dioxide 21 mmol/L (23-31); Chloride 99 mmol/L (98-107); Estimated GFR 37; Glucose 82 mg/dL (83-110); Sodium 128 mmol/L (136-145)
[2024-03-27 14:09] LABS: #Basophils Less than 0.03 10x3/uL (0.0-0.2); %Eosinophils 2.6 % (0.0-10.0); %Lymphocytes 7.9 % (21.0-51.0); %Monocytes 11.4 % (0.0-10.0); %Neutrophils 77.7 % (42.0-75.0); Hemoglobin 8.5 g/dL (12.0-16.0); Mean Corpuscular Hemoglobin 31.1 pg (27.0-31.0); Mean Corpuscular Volume 91.6 fL (78.0-98.0); Mean Platelet Volume 10.8 fL (7.4-10.4); Platelet Count 104 10x3/uL (130-400); RBC Distribution Width 14.9 % (11.5-14.5); Red Blood Cell (RBC) Count 2.73 mill/uL (4.20-5.40)
[2024-03-27 14:41] LABS: Anisocytosis SLIGHT = 6-15 cells HPF (0-5); Microcytosis SLIGHT = 6-15 cells HPF (0-5); Ovalocytes SLIGHT = 2-5 cells HPF (0-1); Platelet Adequacy Comment Platelets Decreased; Polychromasia SLIGHT = 2-3 cells HPF (0-2); Tear Drops SLIGHT = 2-5 cells HPF (0-1)
== END 2024-03-27 10:26 | disposition home or self-care (01) ==
LOC: LABBT 10:25
PROVIDERS: ATTEND Internal Medicine Cardiovascular Disease
DX: Z01.812 Encounter for preprocedural laboratory examination (principal); I48.0 Paroxysmal atrial fibrillation
CPT/HCPCS: 80048; 85025; 85610; 85730

== ENCOUNTER 2024-03-30 09:10 | Day surgery (SDC) | payer MEDICARE ==
[2024-03-27 10:52] VITALS: BMI 28.2
[2024-03-30] MEDS ORDERED: PROPOFOL 20 ML ONE (09:38)
[2024-03-30] MEDS ORDERED: Ondansetron PF 4 MG/2 ML Vial ONE (09:38)
[2024-03-30] MEDS ORDERED: Rocuronium Bromide 10 MG/ML (10ML VIAL) ONE (09:38)
[2024-03-30] MEDS ORDERED: fentaNYL 50 mcg/mL 1 mL Vial ONE (09:38)
[2024-03-30] MEDS ORDERED: Heparin 10,000 UNITS/ 10 ML VIAL ONE (09:40)
[2024-03-30] MEDS ORDERED: DOPamine 400 MG/D5W 250 ML 250 ML ONE (09:40)
[2024-03-30] MEDS ORDERED: SUGAMMADEX SODIUM 200 MG/2 ML VIAL ONE (11:38)
[2024-03-30] MEDS ORDERED: Hydrocortisone Sod Succ/PF 100 mg/2 ml Vial ONE (12:08)
[2024-03-30] MEDS ORDERED: Dexamethasone 20 MG/5 ML VIAL ONE (12:27)
[2024-03-30] MEDS ORDERED: PHENYLEPHRINE-NS 100 MCG/ML 10 ML SYRINGE ONE (12:32)
[2024-03-30] MEDS ORDERED: ePHEDrine Sulfate 50 MG/10 ML VIAL ONE (12:32)
[2024-03-30] MEDS ORDERED: Glycopyrrolate 0.2 MG/ML 5 ML SYRINGE ONE (12:32)
== END 2024-03-30 18:10 | disposition home or self-care (01) ==
LOC: SDC 09:10
PROVIDERS: ATTEND Internal Medicine Cardiovascular Disease
PROC: 02583ZZ Destruction of Conduction Mechanism, Percutaneous Approach (ICD-10-PCS; principal; 2024-03-30)
DX: I48.0 Paroxysmal atrial fibrillation (principal); I34.0 Nonrheumatic mitral (valve) insufficiency; I26.99 Other pulmonary embolism without acute cor pulmonale; I95.1 Orthostatic hypotension; I10 Essential (primary) hypertension; E78.00 Pure hypercholesterolemia, unspecified; Z95.0 Presence of cardiac pacemaker; Z85.79 Personal history of other malignant neoplasms of lymphoid, hematopoietic and related tissues; Z88.1 Allergy status to other antibiotic agents; Z79.01 Long term (current) use of anticoagulants; Z79.899 Other long term (current) drug therapy
CPT/HCPCS: 93005; 93623; 93650; C1760; C1894; J1265; J1720; J2405; J2704; J3010; 93010; 93613; 93620; J1644

== ENCOUNTER 2025-03-15 15:00 | Outpatient (CLI) | payer MEDICARE | END 2025-03-15 15:01 | disposition home or self-care (01) | LOC: BICMAMMO 15:00 | PROVIDERS: ATTEND Obstetrics & Gynecology | DX: Z12.31 Encounter for screening mammogram for malignant neoplasm of breast (principal); Z80.3 Family history of malignant neoplasm of breast; Z85.89 Personal history of malignant neoplasm of other organs and systems | CPT/HCPCS: 77063; 77067 ==